=== PATIENT | female | born 1985 | race Caucasian/White ===

== ENCOUNTER → 2016-12-30 | Day surgery (SDC) | payer BC ==
[~2016-12-30] MED LIST: APREPITANT 40 MG CAP ONE; HYDR200T42 PO; IBUP600 PO; KETOROLAC TROMETHAMINE 30 MG/ML (IVP) VIAL IV PUSH ONE; LACTATED RINGER'S 1000 ML INJ 1,000 ML ONE; LEVO112T2 PO; LIDOCAINE 1%/EPINEPHrine 1:100,000 SOLN 50 ML VIAL ONE; LIDOCAINE HCL 1% PF 30 ML VIAL ONE; METHYLERGONOVINE MALEATE 0.2 MG/ML VIAL ONE; MIDAZOLAM HCL 2 MG/2 ML VIAL ONE; ONDANSETRON HCL 4 MG/2 ML VIAL IV PUSH ONE; OXYC1SOL5 PO; OXYTOCIN 10 UNIT/ML AMP ONE; PERI8.6T PO; PRENCAP6 PO; PROPOFOL 100 MG/10 ML INJ IV ONE; PROT40TA PO; ceFAZolin INJ 1,000 MG VIAL ONE
--- NOTE | 2016-12-30 08:34 | MP ---
cc: MARGARITA SANCHEZ M.D. DATE OF SURGERY 12/30/2016 DATE OF 09/23/1995 PROCEDURE PERFORMED 1. Exam under anesthesia 2. Dilation and curettage with suction. PREOPERATIVE DIAGNOSIS Missed at six weeks. POSTOPERATIVE DIAGNOSIS 1. Missed at six weeks. 2. Postop day number zero. INDICATIONS Jyothi Hope is a 31-year-old who was seen in the office for a new OB visit. On ultrasound imaging, she was measuring six weeks gestation and no cardiac activity was seen. She was sent for quantitative beta hCG x2 which did show a decreasing number and at one week follow up, there was no progression of growth on imaging, still no cardiac activity. She was diagnosed with missed miscarriage. The patient desired active surgical management and such she was scheduled. SURGEON Margarita Sanchez MD TYPE OF ANESTHESIA General using LMA ESTIMATED BLOOD LOSS 25 mL URINE OUTPUT 20 mL of clear urine drained by sterile in-and-out red rubber catheter at the beginning of the procedure. IV FLUID REPLACEMENT 250 mL SPECIMEN Products of conception. INTRAOPERATIVE FINDINGS A smooth 3 cm mobile cervix. Uterus anteflexed 7 weeks size. Adnexa are within normal limits on palpation without mass. Cervix was closed. Products of conception visualized in suction tubing intraoperatively. PROPHYLAXIS Ancef one gram IV was given preoperatively. SCD's were on and functioning throughout the entire case. COMPLICATIONS None COUNTS Sponge, lap, instrument, needle counts are correct x2 at the conclusion of the procedure. PROCEDURE IN DETAIL After reviewing the informed consent, the was patient taken to the operating suite where a time-out was performed to identify the patient, the planned procedure and any known allergies to drugs or drug products. The patient was then laid in dorsal supine position and general anesthesia using LMA was administered without difficulty and found to be adequate. The patient was gently elevated into high lithotomy position in candy cane stirrups and perineum was prepped and draped in a normal sterile fashion. Sterile red rubber catheter was used to drain the bladder. Attention was turned vaginally where a sterile speculum was placed. Cervix was visualized, grasped on the anterior lip with a single-tooth tenaculum. A paracervical block was then performed using 10 mL of 1% lidocaine with epinephrine. The cervix was then sounded to 7 cm. Progression of cervical dilators were used to dilate up to accommodate an 8-[place] suction curette which was then introduced, suction was activated, and curette was rotated multiple times until clearance of all intrauterine contents was expected. The suction device was turned off and removed. A sharp curette was introduced. Curettage was performed until a good cry was fell in all areas. The suction device was then reintroduced one final time with no additional contents noted after suction was activated. Suction device was turned off and remoted vaginally. The tenaculum was removed, sponge stick was used for hemostasis, and speculum were removed vaginally. The procedure concluded at this point. The patient was brought back into dorsal supine position. She was awoken from anesthesia without complication. She was given a single dose of 0.2 mg of Methergine IM as a precaution and to help prevent heavy bleeding. She will be discharged to home today with office followup in a week. She is aware of postoperative precautions. DISPOSITION Discharge to home with office follow-up in 1-2 weeks. MD KVNG Hernandes/CONTRERAS /8:11 AM /8:20 AM CAREN
== END | disposition home or self-care (01) ==
LOC: ESDC 06:20
PROVIDERS: ATTEND Obstetrics & Gynecology
DX: O02.1 Missed abortion (principal)
CPT/HCPCS: 01965; 59820; 88305; J0690; J1885; J2210; J2250; J2405; J3010; J7120; J8501; J2590

== ENCOUNTER 2017-10-18 21:37 | Inpatient (IN) ==
--- NOTE | 2017-10-18 22:15 | ED ---
History of Present Illness Primary Care Physician: No Primary Care Physician Dr. Sanchez Chief Complaint: Leaking of fluid History of Present Illness: 32-year-old 012, IUP at 37.0 new care complicated by rheumatoid arthritis, prior 2, suspected macrosomia The patient presents complaining of a tearing sensation followed by a large gush of fluid at 9:30 PM. She reports she was laying in bed when this happened and she initially thought she had urinated herself. She stood up and subsequently had another big gush of fluid and has been leaking clear fluid since. She denies any painful contractions. She reports good movement. She denies any vaginal bleeding. There were no precipitating factors to the leaking of fluid. She reports that she has not been feeling well over the past 1-2 weeks in general. She reports that she saw Dr. Sanchez in the office today. 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 This includes certification that hospital inpatient services are reasonable and necessary and in the case of services not specified as inpatient-only under 42 CFR 419.22(n), that they are appropriately provided as inpatient services in accordance to with the 2-midnight benchmark under 43 CFR 412.3(e) Estimated Total Length of Stay (Days): 3 Plans for Post Hospital Care: Home Review of Systems All other systems reviewed negative except as stated in HPI PMFSH - History History Provided By: Patient - Tobacco History Smoking Status: Never smoker Medications and Allergies Allergies Allergy/AdvReac Type Severity Reaction Status Date / Time methylprednisolone Allergy Severe Swelling Verified 10/18/17 22:36 of Lip/Tongue/Throat Home Medications Medication Instructions Recorded Confirmed Type hydroxychloroquine [Plaquenil] 200 PO BID 10/18/17 History lactobacillus combination no.4 3,000 mmu cells PO DAILY 10/18/17 10/18/17 History [Probiotic] levothyroxine [Levoxyl] 150 mcg PO DAILY 10/18/17 10/18/17 History omega 4-vcz-sno-fish oil [Fish Oil] 10/18/17 10/18/17 History prenat.vits,abbie,phu-hxbw-hfojk 1 tab PO DAILY 10/18/17 10/18/17 History [ Vitamin] Exam Vital signs: Vital Signs 10/18/17 21:48 10/18/17 21:58 Temperature 98.7 F Pulse Rate 105 H Respiratory Rate 18 Blood Pressure 110/77 - Constitutional no acute distress - Routine HEENT Exam Head: Present: normocephalic, atraumatic Eye: Present: EOMI, PERRL, conjunctivae pink ENT: Present: mucous membranes moist - Routine Neck Exam Present: supple, full ROM - Routine Respiratory Exam Present: CTA bilaterally - Routine Cardiovascular Exam Present: RRR - Routine Abdominal Exam Present: soft, normoactive bowel sounds - Routine Exam External: Present: normal urethra appearance Perineum Description: Intact Comments: Normal leg press, appears to be grossly ruptured with am sure positive, no cervical or vaginal masses noted, grossly normal rugated, SVE 1/50/high - Routine Extremities Exam Present: full ROM - Routine Skin Exam Present: intact, dry, warm - Routine Neurological Exam Present: alert, oriented X3, CN II-XII intact - Routine Psychiatric Exam Present: normal affect, normal thought process, good insight, good judgment Results - Labs CBC & Chem 7: 10/20/17 07:14 Assessment and Plan - Plan Assessment/plan: 1. IUP at 37.0 2. PROM: The patient is grossly ruptured on examination and has a positive amnisure. Will admit to Dr. Sanchez. 3. History of previous delivery 2: Patient will be admitted to Dr. Sanchez for repeat delivery. The patient was discussed with Dr. Sanchez and plan was made made with the patient's physician. Risks, benefits, and alternatives were discussed with the patient including but not limited to pain, infection, bleeding, injury to other organs like the bladder/bowel/nerves/ vessels, injury to the baby, need for repeat operation, need for hysterectomy, need for blood transfusion, wound infection/breakdown, and other possible complications. All the patient's questions were answered and consent was signed. 4. History of rheumatoid arthritis 5. GBS negative 6. Suspected macrosomia with recent estimated weight approximately 10 pounds 7. Contraception: Patient reports her will be receiving a vasectomy and she does not desire a tubal ligation at this time NST report: Indications: IUP at 37 weeks, rheumatoid arthritis, leaking of fluid heart tones are in the 160s with moderate long-term variability, good accelerations, no decelerations noted. However, heart rate pattern has returned to a normal baseline with heart tones in the 140s. This is a reactive NST and category 1 heart rate tracing. Final diagnosis: IUP at 37 weeks, rheumatoid arthritis, PROM, reassuring testing Follow-up: Monitoring will continue until patient is taken to the OR [place]: Contractions are irregular, every 2-6 minutes Discharge Plan - Discharge Disposition Patient Disposition: 01 Discharge Home - Discharge Condition Condition: Good - Discharge Order Discharge Orders: Discharge Order (Routine); Ordered 10/21/17 Ordered By: Danielle Lacy - Discharge Details Anticipated Discharge Date: 10/21/17 - Physicians Team Primary Care Provider: Primary Care Beronica Zhang Attending Provider: Mirella Sanchez
[2017-10-18] MEDS ORDERED: Citric Acid/Sodium Citrate Liq 30 ML UDC PO SCH (22:30)
[2017-10-18 22:44] LABS: Baso % (Auto) 0.3 % (0.0-2.0); Eos # (Auto) 0.1 th/mm3 (0.0-0.4); Eos % (Auto) 1.4 % (0.0-4.0); Hematocrit 38.6 % (35.0-46.0); Hemoglobin 13.2 gm/dL (11.6-15.3); Lymph # (Auto) 2.1 th/mm3 (1.0-4.8); Lymph % (Auto) 21.5 % (9.0-44.0); Mean Corpuscular HGB Conc 34.2 % (32.0-36.0); Mean Corpuscular Volume 90.7 fL (80.0-100.0); Mean Platelet Volume 10.7 fL (7.0-11.0); Mono # (Auto) 0.7 th/mm3 (0.0-0.9); Mono % (Auto) 6.9 % (0.0-8.0); Neut # (Auto) 6.7 th/mm3 (1.8-7.7); Neut % (Auto) 69.9 % (16.0-70.0); Platelet Count 133 th/mm3 (150-450); Red Blood Count 4.26 mil/mm3 (4.00-5.30); Red Cell Distribution Width 13.6 % (11.6-17.2); White Blood Count 9.6 th/mm3 (4.0-11.0)
[2017-10-18 22:59] LABS: Bilirubin,Urine Negative (Negative); Clarity,Urine Clear (Clear); Color,Urine Yellow (Yellw/Straw); Glucose,Urine (UA) Negative (Negative); Leukocyte Esterase,Urine Negative (Negative); Mucus,Urine Few /lpf (Occasional); Nitrite,Urine Negative (Negative); Specific Gravity,Urine 1.014 (1.002-1.035)
[2017-10-18] MEDS ORDERED: ceFAZolin Inj 2,000 MG in Sodium Chlor 0.9% Inj 80 ML IV.SIG SCH (23:00)
[2017-10-18] MEDS ORDERED: Naloxone Inj 0.4 MG/ML Vial IV.PUSH PRN (23:00)
[2017-10-18] MEDS ORDERED: Morphine Sulfate PF Inj 5 MG/10 ML Ampul ONE (23:05)
--- NOTE | 2017-10-19 00:15 | P.OBDELI ---
Procedure Note Performed by: Mirella Sanchez MD Procedure: Repeat Low Transverse Section Indication for Delivery: Desired elective repeat Informed Consent Obtained: For anesthesia, For procedure Confirmed Correct: Patient, Procedure, Site, Time-out taken Anesthesia: Spinal Medication Prior to Procedure: As documented in eMAR Monitoring During Procedure: Blood pressure monitoring, heating and cooling systems engineer, monitor, Pulse oximetry Urinary Catheter: Inserted using sterile technique, To dependent drainage, ml urine output (300) Sterile Preparation: Duraprep, In usual fashion, With drapes to expose affected area Position: Supine with wedge to right side - Operative Features Skin Incision: Pfannenstiel Uterine Incision: Low transverse w/knife / blunt ext Membranes Ruptured: Artificially, Amount of liquid (moderate), Appearance of fluid (clear) Presentation: Vertex Status of Infant: Viable, Cord blood, Nursery present Placenta Delivered: Intact Medications: Antibiotics (ancef 2g IV preop) Estimated blood loss (mL): 500 Procedure Tolerated: Well Maternal Condition: Stable Baby Condition: Stable Procedure in Detail: see dictated op note for full details - : Female, Single Female A Delivery Date: 10/18/17 Delivery Time: 23:34 Weight: 3.745 kg (healthy girl "Yaima" 8#4oz) Delivery of : Uneventful score (1 min): 9 score (5 min): 9
[2017-10-19] MEDS ORDERED: Acetaminophen 325 MG Tablet PO PRN (00:21)
[2017-10-19] MEDS ORDERED: Oxytocin 30 Units/500ml Premix 30 UNITS/500 ML BAG IV.SIG ONE (00:21)
[2017-10-19] MEDS ORDERED: Simethicone 80 MG Chew Tablet PO PRN (00:21)
[2017-10-19] MEDS ORDERED: Zolpidem Tartrate 5 MG Tablet PO PRN (00:21)
[2017-10-19] MEDS ORDERED: Senna/Docusate Sodium 8.6/50 MG Tablet PO PRN (00:21)
--- NOTE | 2017-10-19 00:41 | MP ---
cc: Mirella Sanchez MD DATE OF OPERATION: 10/18/2017 DATE OF SURGERY: 10/18/2017. PREOPERATIVE DIAGNOSES: 1. Benito intrauterine at 37 weeks. 2. Spontaneous rupture of membranes. 3. Active labor. 4. History of x2, for repeat. POSTOPERATIVE DIAGNOSIS the same. 1. Benito intrauterine at 37 weeks. 2. Spontaneous rupture of membranes. 3. Active labor. 4. History of x2, for repeat. 5. Postop day #0. INDICATIONS: Jyothi Hope is a 32-year-old 4, now para 3-0-1-3, who has been seen and evaluated throughout her with history of 2 C-sections and desired repeat at term, for which she was scheduled. On the evening of 10/18/2017 she felt a pop and a large gush of fluid around 9:30 p.m. She came into the hospital, was found to be ruled in for spontaneous rupture of membranes, and was jarod every 2 minutes on the monitor. As such, she was taken for repeat as she is term at 37 weeks. PROCEDURE PERFORMED: Repeat low transverse delivery. SURGEON: Mirella Sanchez MD TYPE OF ANESTHESIA: Spinal. ESTIMATED BLOOD LOSS: 500 mL. IV FLUID REPLACEMENT: 1500 mL. URINE OUTPUT: 300 mL clear urine draining in the Zelaya bag at the end of the procedure. COMPLICATIONS: None. COUNTS: Sponge, lap, instrument and needles were all correct x2 at the conclusion of the procedure. PROPHYLAXIS: Ancef 2 grams IV was given preoperatively and SCDs were on and functioning throughout the entire case. SPECIMENS: None. INTRAOPERATIVE FINDINGS: Included vigorous viable female infant weighing 8 pounds 4 ounces in vertex presentation, clear amniotic fluid, Apgars of 9 and 9. Uterus, bilateral fallopian tubes and ovaries within normal limits. Minimal scar tissue. PROCEDURE IN DETAIL: After reviewing the informed consent, the patient was taken to the operating room, where she was placed sitting up on the exam table and spinal anesthesia was administered without difficulty and found to be adequate. The patient was then laid in dorsal supine position with a bump under her right side, and abdomen and perineum were prepped and draped in normal sterile fashion. Zelaya catheter was placed using sterile technique. Pfannenstiel type skin incision was made in the area of the previous skin incision, and old scar was excised. The incision was carried down to the underlying layer of fascia with the Bovie and was extended laterally sharply with Loya scissors. Kochers were used to elevate the fascia, first superiorly and then inferiorly, and rectus muscles were dissected off sharply with Loya scissors. Rectus muscles were then in the midline and peritoneum was identified and entered bluntly with surgeon's index finger. Incision was extended. Bladder blade was placed. A bladder flap was made. Bladder blade was replaced. A low transverse uterine incision was made with a scalpel. This was extended bluntly. Amniotic sac was already ruptured; clear fluid was noted. The 's head was grasped, elevated out through the incision. With gentle maneuvering, the rest of the body readily followed. was immediately crying and vigorous upon delivery. Delayed cord clamping of 45 seconds was performed. Cord was then doubly clamped and cut, and the infant was handed off to the waiting nursery staff. The placenta was then delivered spontaneously with gentle cord traction and fundal massage. Uterus was exteriorized, cleared of all clots and debris with sterile moist lap sponges. Uterine incision was repaired in a double layer, first a running locked layer, then an imbricating layer with #1 chromic. Posterior cul-de-sac was then irrigated. Uterus was returned to the abdomen. Additional irrigation with suction was performed. A layer of Interceed was placed over the repaired hysterotomy as to act as an adhesion barrier. The peritoneum was closed with 2-0 chromic in a running fashion. Fascia was closed in a running layer with #1 Vicryl. Subcutaneous tissue was irrigated copiously with warm sterile saline, and hemostasis was assured with the Bovie. Skin was closed in a subcuticular fashion using 4-0 Monocryl. The skin was cleaned and dried. Steri-Strips were placed, as was a standard dressing. The patient tolerated the procedure well. Procedure concluded at this point. DISPOSITION: The patient's estimated length of stay is 2-3 postoperative days. Infant is nursery status, female named Yaima. MD KVNG Hernandes/LAURA , 12:20 AM , 12:28 AM CAREN
[2017-10-19] MEDS ORDERED: Oxytocin 30 Units/500ml Premix 30 UNITS/500 ML BAG IV.SIG PRN (05:21)
--- NOTE | 2017-10-19 08:05 | P.PNOB ---
Subjective Post op day: 0 Interval history: some N/V controlled with zofran, Objective Vital Signs/I&O: Vital Signs 10/18/17 21:48 10/18/17 21:58 10/18/17 22:10 Temperature 98.7 F Pulse Rate 105 H 93 H Respiratory Rate 18 Blood Pressure 110/77 10/18/17 22:19 10/18/17 22:40 10/18/17 22:47 Temperature Pulse Rate 89 Respiratory Rate 16 16 Blood Pressure 10/19/17 00:28 10/19/17 00:42 10/19/17 01:03 Temperature 97.7 F Pulse Rate 96 H 86 84 Respiratory Rate 18 18 15 Blood Pressure 117/71 122/70 115/68 10/19/17 01:18 10/19/17 01:50 10/19/17 03:57 Temperature 97.8 F 98.3 F 98.0 F Pulse Rate 82 71 77 Respiratory Rate 20 18 17 Blood Pressure 121/73 147/85 H 133/75 Intake & Output 10/18/17 10/19/17 10/19/17 18:59 06:59 18:59 Weight 94 kg Result Diagrams: 10/18/17 22:10 Objective Remarks: GENERAL: Well-nourished, well-developed patient. CARDIOVASCULAR: Regular rate and rhythm without murmurs, gallops, or rubs. RESPIRATORY: Breath sounds equal bilaterally. No accessory muscle use. ABDOMEN/GI: Abdomen soft, non-tender, bowel sounds present. Incision: dressing Clean, dry and intact. Fundus: Firm, non-tender at umbilicus. GENITOURINARY: Light to moderate bleeding. EXTREMITIES: No cyanosis or edema, non-tender, without signs of DVT. Medications and IVs: Active Medications Acetaminophen (Tylenol) 650 mg PO Q6H PRN PRN Reason: PAIN SCALE 1 TO 2 Diphenhydramine HCl (Benadryl Inj) 25 mg IV.PUSH Q6H PRN PRN Reason: MILD TO MODERATE ITCHING Stop: 10/19/17 22:59 Diphenhydramine HCl (Benadryl) 50 mg PO Q6H PRN PRN Reason: MILD TO MODERATE ITCHING Stop: 10/19/17 22:59 Diphtheria/Pertussis/Tetanus Vacc (Boostrix Vaccine Inj) 0.5 ml IM .ONCE ONE Stop: 10/20/17 16:01 Lactated Ringer's (Lr 1000 Ml Inj) 1,000 mls @ 150 mls/hr IV.CONT .Q6H40M [facility] Last Admin: 10/19/17 01:07 Dose: 150 mls/hr Lactated Ringer's (Lr 1000 Ml Inj) 1,000 mls @ 100 mls/hr IV.CONT .Q10H [facility] Stop: 10/20/17 01:20 Oxytocin (Pitocin 30 Units/Ns 500 Ml Premix) 30 units in 500 mls @ 100 mls/hr IV.SIG PRN PRN PRN Reason: Heavy bleeding Stop: 10/20/17 05:20 Ibuprofen (Motrin) 600 mg PO Q6HR PRN PRN Reason: cramping Ketorolac Tromethamine (Toradol Inj) 30 mg IM Q6H PRN PRN Reason: SEE LABEL COMMENTS Stop: 10/24/17 00:20 Levothyroxine Sodium (Synthroid) 150 mcg PO DAILY@0700 [facility] Measles/Mumps/Rubella Vaccine Live (M-M-R Ii Vaccine Inj) 0.5 ml SQ .ONCE ONE Stop: 10/20/17 16:01 Miscellaneous Information ([facility]) 1 each OTHER UNSCH PRN PRN Reason: SEE LABEL COMMENTS Stop: 10/19/17 22:59 Miscellaneous Information ([facility]) 1 each OTHER UNSCH PRN PRN Reason: SEE LABEL COMMENTS Stop: 10/19/17 22:59 Naloxone HCl (Narcan Inj) 0.4 mg IV.PUSH UNSCH PRN PRN Reason: SEE LABEL COMMENTS Stop: 10/19/17 22:59 Ondansetron HCl (Zofran Inj) 4 mg IV.PUSH Q6H PRN PRN Reason: NAUSEA OR VOMITING Last Admin: 10/19/17 07:00 Dose: 4 mg Oxycodone/Acetaminophen (Percocet 5/325 Mg) 1 tab PO Q4H PRN PRN Reason: PAIN SCALE 3 TO 5 Oxycodone/Acetaminophen (Percocet 5/325 Mg) 2 tab PO Q4H PRN PRN Reason: PAIN SCALE 6 TO 10 Senna/Docusate Sodium (Giselle-Colace) 2 tab PO Q12H PRN PRN Reason: CONSTIPATION Simethicone (Mylicon Chew) 80 mg PO QID PRN PRN Reason: FLATULENCE Sodium Chloride (Ns Flush) 2 ml IV.FLUSH BID FARHANA Sodium Chloride (Ns Flush) 2 ml IV.FLUSH PRN PRN PRN Reason: FLUSH AFTER USING IV ACCESS Sodium Chloride (Ns Flush) 2 ml IV.FLUSH BID FARHANA Sodium Chloride (Ns Flush) 2 ml IV.FLUSH PRN PRN PRN Reason: FLUSH AFTER USING IV ACCESS Zolpidem Tartrate (Ambien) 5 mg PO HS PRN PRN Reason: INSOMNIA Assessment and Plan - Diagnosis (1) delivery delivered Code(s): O82 - Encounter for delivery without indication Status: Acute - Plan Assessment/plan: 1. IUP at 37.0 2. PROM: The patient is grossly ruptured on examination and has a positive family sure. Will admit to Dr. Sanchez. 3. History of previous delivery 2: Patient will be admitted to Dr. Healy for repeat delivery. The patient was discussed with Dr. Sanchez and plan was made made with the patient's physician. Risks, benefits, and alternatives were discussed with the patient including but not limited to pain, infection, bleeding, injury to other organs like the bladder/bowel/nerves/ vessels, injury to the baby, need for repeat operation, need for hysterectomy, need for blood transfusion, wound infection/breakdown, and other possible complications. All the patient's questions were answered and consent was signed. 4. History of rheumatoid arthritis 5. GBS negative 6. Suspected macrosomia with recent estimated weight approximately 10 pounds 7. Contraception: Patient reports her will be receiving a vasectomy and she does not desire a tubal ligation at this time POD#0 s/p repeat c/s doing well d/c rodas at 9am, OOD as tole. analgesia prn Discharge Planning: routine - Attending Attestation pt seen by me
[2017-10-19] MEDS: Levothyroxine 150 MCG Tablet PO SCH (08:31)
[2017-10-19] MEDS: Ibuprofen 600 MG Tablet PO PRN ×2 (13:44→21:03)
[2017-10-19 16:14] VITALS: O2SAT 98
[2017-10-20] MEDS: Ibuprofen 600 MG Tablet PO PRN ×3 (06:53→23:37)
[2017-10-20] MEDS: Levothyroxine 150 MCG Tablet PO SCH (06:54)
[2017-10-20 07:32] LABS: Baso % (Auto) 0.4 % (0.0-2.0); Eos # (Auto) 0.1 th/mm3 (0.0-0.4); Eos % (Auto) 1.5 % (0.0-4.0); Hematocrit 39.3 % (35.0-46.0); Hemoglobin 13.3 gm/dL (11.6-15.3); Lymph # (Auto) 1.8 th/mm3 (1.0-4.8); Lymph % (Auto) 19.4 % (9.0-44.0); Mean Corpuscular HGB Conc 33.8 % (32.0-36.0); Mean Corpuscular Hemoglobin 31.1 pg (27.0-34.0); Mean Corpuscular Volume 92.1 fL (80.0-100.0); Mean Platelet Volume 9.9 fL (7.0-11.0); Mono # (Auto) 0.8 th/mm3 (0.0-0.9); Mono % (Auto) 8.4 % (0.0-8.0); Neut # (Auto) 6.7 th/mm3 (1.8-7.7); Neut % (Auto) 70.3 % (16.0-70.0); Platelet Count 111 th/mm3 (150-450); Red Blood Count 4.27 mil/mm3 (4.00-5.30); Red Cell Distribution Width 13.8 % (11.6-17.2); White Blood Count 9.5 th/mm3 (4.0-11.0)
--- NOTE | 2017-10-20 09:15 | P.PNOB ---
Subjective Post op day: 2 Interval history: in NICU with low sugars and hopefully will return to room today has two at home and hopes to go home would do stay close if needed Objective Vital Signs/I&O: Vital Signs 10/19/17 11:43 10/19/17 16:00 10/19/17 19:45 Temperature 98.0 F 97.8 F 98.1 F Pulse Rate 75 71 72 Respiratory Rate 18 18 18 Blood Pressure 114/63 103/63 126/76 Pulse Oximetry 98 10/19/17 23:05 Temperature 98.0 F Pulse Rate 89 Respiratory Rate 18 Blood Pressure 116/79 Pulse Oximetry Result Diagrams: 10/20/17 07:14 Objective Remarks: GENERAL: Well-nourished, well-developed patient. CARDIOVASCULAR: Regular rate and rhythm without murmurs, gallops, or rubs. RESPIRATORY: Breath sounds equal bilaterally. No accessory muscle use. ABDOMEN/GI: Abdomen soft, non-tender, bowel sounds present. Incision: Clean, dry and intact. Fundus: Firm, non-tender at umbilicus. GENITOURINARY: Light to moderate bleeding. EXTREMITIES: No cyanosis or edema, non-tender, without signs of DVT. Medications and IVs: Active Medications Acetaminophen (Tylenol) 650 mg PO Q6H PRN PRN Reason: PAIN SCALE 1 TO 2 Diphtheria/Pertussis/Tetanus Vacc (Boostrix Vaccine Inj) 0.5 ml IM .ONCE ONE Stop: 10/20/17 16:01 Lactated Ringer's (Lr 1000 Ml Inj) 1,000 mls @ 150 mls/hr IV.CONT .Q6H40M [facility] Last Admin: 10/19/17 01:07 Dose: 150 mls/hr Ibuprofen (Motrin) 600 mg PO Q6HR PRN PRN Reason: cramping Last Admin: 10/20/17 06:53 Dose: 600 mg Ketorolac Tromethamine (Toradol Inj) 30 mg IM Q6H PRN PRN Reason: SEE LABEL COMMENTS Stop: 10/24/17 00:20 Levothyroxine Sodium (Synthroid) 150 mcg PO DAILY@0700 [facility] Last Admin: 10/20/17 06:54 Dose: 150 mcg Measles/Mumps/Rubella Vaccine Live (M-M-R Ii Vaccine Inj) 0.5 ml SQ .ONCE ONE Stop: 10/20/17 16:01 Ondansetron HCl (Zofran Inj) 4 mg IV.PUSH Q6H PRN PRN Reason: NAUSEA OR VOMITING Last Admin: 10/19/17 07:00 Dose: 4 mg Oxycodone/Acetaminophen (Percocet 5/325 Mg) 1 tab PO Q4H PRN PRN Reason: PAIN SCALE 3 TO 5 Last Admin: 10/20/17 06:53 Dose: 1 tab Oxycodone/Acetaminophen (Percocet 5/325 Mg) 2 tab PO Q4H PRN PRN Reason: PAIN SCALE 6 TO 10 Senna/Docusate Sodium (Giselle-Colace) 2 tab PO Q12H PRN PRN Reason: CONSTIPATION Simethicone (Mylicon Chew) 80 mg PO QID PRN PRN Reason: FLATULENCE Sodium Chloride (Ns Flush) 2 ml IV.FLUSH BID FARHANA Sodium Chloride (Ns Flush) 2 ml IV.FLUSH PRN PRN PRN Reason: FLUSH AFTER USING IV ACCESS Sodium Chloride (Ns Flush) 2 ml IV.FLUSH BID FARHANA Sodium Chloride (Ns Flush) 2 ml IV.FLUSH PRN PRN PRN Reason: FLUSH AFTER USING IV ACCESS Zolpidem Tartrate (Ambien) 5 mg PO HS PRN PRN Reason: INSOMNIA Assessment and Plan - Diagnosis (1) delivery delivered Code(s): O82 - Encounter for delivery without indication Status: Acute - Plan Assessment/plan: 1. IUP at 37.0 2. PROM: The patient is grossly ruptured on examination and has a positive family sure. Will admit to Dr. Sanchez. 3. History of previous delivery 2: Patient will be admitted to Dr. Healy for repeat delivery. The patient was discussed with Dr. Sanchez and plan was made made with the patient's physician. Risks, benefits, and alternatives were discussed with the patient including but not limited to pain, infection, bleeding, injury to other organs like the bladder/bowel/nerves/ vessels, injury to the baby, need for repeat operation, need for hysterectomy, need for blood transfusion, wound infection/breakdown, and other possible complications. All the patient's questions were answered and consent was signed. 4. History of rheumatoid arthritis 5. GBS negative 6. Suspected macrosomia with recent estimated weight approximately 10 pounds 7. Contraception: Patient reports her will be receiving a vasectomy and she does not desire a tubal ligation at this time POD#0 s/p repeat c/s doing well d/c rodas at 9am, OOD as tole. analgesia prn Discharge Planning: keep until tomorrow doing well otherwise
[2017-10-20] MEDS ORDERED: Diphtheria/Tetanus/Pertussis Vaccine Inj 0.5 ML Syringe IM ONE (16:00)
[2017-10-20] MEDS ORDERED: Measles/Mumps/Rubella Vaccine Inj 0.5 ML Vial SQ ONE (16:00)
[2017-10-21] MEDS: Levothyroxine 150 MCG Tablet PO SCH (07:38)
[2017-10-21] MEDS: Ibuprofen 600 MG Tablet PO PRN (07:40)
--- NOTE | 2017-10-21 10:55 | P.PNOB ---
Subjective Post op day: 3 Interval history: Concerned about why she should take another 3 ampules of rhogam if she is not planning more children otherwise ready for discharge nursing and baby ready for discharge Objective Vital Signs/I&O: Vital Signs 10/20/17 19:55 10/21/17 08:05 Temperature 98.2 F 97.8 F Pulse Rate 77 69 Respiratory Rate 18 6 L Blood Pressure 122/77 121/77 Result Diagrams: 10/20/17 07:14 Other Results: incision clean and dry Objective Remarks: GENERAL: Well-nourished, well-developed patient. CARDIOVASCULAR: Regular rate and rhythm without murmurs, gallops, or rubs. RESPIRATORY: Breath sounds equal bilaterally. No accessory muscle use. ABDOMEN/GI: Abdomen soft, non-tender, bowel sounds present. Incision: Clean, dry and intact. Fundus: Firm, non-tender at umbilicus. GENITOURINARY: Light to moderate bleeding. EXTREMITIES: No cyanosis or edema, non-tender, without signs of DVT. Medications and IVs: Active Medications Acetaminophen (Tylenol) 650 mg PO Q6H PRN PRN Reason: PAIN SCALE 1 TO 2 Lactated Ringer's (Lr 1000 Ml Inj) 1,000 mls @ 150 mls/hr IV.CONT .Q6H40M [facility] Last Admin: 10/19/17 01:07 Dose: 150 mls/hr Ibuprofen (Motrin) 600 mg PO Q6HR PRN PRN Reason: cramping Last Admin: 10/21/17 07:40 Dose: 600 mg Ketorolac Tromethamine (Toradol Inj) 30 mg IM Q6H PRN PRN Reason: SEE LABEL COMMENTS Stop: 10/24/17 00:20 Levothyroxine Sodium (Synthroid) 150 mcg PO DAILY@0700 [facility] Last Admin: 10/21/17 07:38 Dose: 150 mcg Ondansetron HCl (Zofran Inj) 4 mg IV.PUSH Q6H PRN PRN Reason: NAUSEA OR VOMITING Last Admin: 10/19/17 07:00 Dose: 4 mg Oxycodone/Acetaminophen (Percocet 5/325 Mg) 1 tab PO Q4H PRN PRN Reason: PAIN SCALE 3 TO 5 Last Admin: 10/21/17 03:57 Dose: 1 tab Oxycodone/Acetaminophen (Percocet 5/325 Mg) 2 tab PO Q4H PRN PRN Reason: PAIN SCALE 6 TO 10 Senna/Docusate Sodium (Giselle-Colace) 2 tab PO Q12H PRN PRN Reason: CONSTIPATION Last Admin: 10/20/17 12:28 Dose: 2 tab Simethicone (Mylicon Chew) 80 mg PO QID PRN PRN Reason: FLATULENCE Sodium Chloride (Ns Flush) 2 ml IV.FLUSH BID [facility] Last Admin: 10/20/17 10:21 Dose: Not Given Sodium Chloride (Ns Flush) 2 ml IV.FLUSH PRN PRN PRN Reason: FLUSH AFTER USING IV ACCESS Sodium Chloride (Ns Flush) 2 ml IV.FLUSH BID [facility] Last Admin: 10/20/17 10:22 Dose: Not Given Sodium Chloride (Ns Flush) 2 ml IV.FLUSH PRN PRN PRN Reason: FLUSH AFTER USING IV ACCESS Zolpidem Tartrate (Ambien) 5 mg PO HS PRN PRN Reason: INSOMNIA Assessment and Plan - Diagnosis (1) delivery delivered Code(s): O82 - Encounter for delivery without indication Status: Acute (2) Postcesarean section Code(s): Z98.891 - History of uterine scar from previous surgery Status: Acute - Plan Assessment/plan: 1. IUP at 37.0 2. PROM: The patient is grossly ruptured on examination and has a positive family sure. Will admit to Dr. Sanchez. 3. History of previous delivery 2: Patient will be admitted to Dr. Healy for repeat delivery. The patient was discussed with Dr. Sanchez and plan was made made with the patient's physician. Risks, benefits, and alternatives were discussed with the patient including but not limited to pain, infection, bleeding, injury to other organs like the bladder/bowel/nerves/ vessels, injury to the baby, need for repeat operation, need for hysterectomy, need for blood transfusion, wound infection/breakdown, and other possible complications. All the patient's questions were answered and consent was signed. 4. History of rheumatoid arthritis 5. GBS negative 6. Suspected macrosomia with recent estimated weight approximately 10 pounds 7. Contraception: Patient reports her will be receiving a vasectomy and she does not desire a tubal ligation at this time POD#0 s/p repeat c/s doing well d/c rodas at 9am, OOD as tole. analgesia prn POD 3 Doing well declines additional rhogam home today Discharge Planning: keep until tomorrow doing well otherwise
[2017-10-24 18:35] VITALS: BP 120/80; PULSE 78; RESP 18; TEMP 98.8
== END 2017-10-21 13:54 | disposition home or self-care (01) ==
LOC: HOBED 21:37 → H2E 22:04 → H1EA 10-19 01:35
PROVIDERS: ADMIT Obstetrics & Gynecology; ATTEND Obstetrics & Gynecology